=== PATIENT | male | born 1995 | race American Indian/Alaskan Native ===

== ENCOUNTER 2017-07-16 18:19 | Emergency (ER) | payer OTHER ==
[2017-07-16 18:40] VITALS: BP 131/73
[2017-07-16] MEDS ORDERED: BOOSTRIX IM ONE (19:19)
[2017-07-16] MEDS ORDERED: ULTRAM PO ONE (19:19)
[2017-07-16] MEDS ORDERED: MARCAINE 0.5% INFILTRATI ONE (19:25)
--- NOTE | 2017-07-16 19:26 | Emergency Department Report ---
ED Laceration HPI - HPI Chief Complaint: Laceration/Recheck/Suture Stated Complaint: EYE LAC Time Seen by Provider: 07/16/17 19:16 Occurred When: Today Location: Head Severity: mild Tetanus Status: Not up to Date Laceration Symptoms: Yes Pain, No Foreign Body Sensation, No Numbness, No Weakness Other History: This is a 22-year-old male nontoxic, well nourished in appearance , no acute signs of distress presents to the ED with c/o of left eyebrow lacertation. Patient stated he was playing basketball in correction and was elbowed. Patient denies any loss of consciousness but stated he had a severe headache. Patient denies any blurry vision, visual changes, fever, chills, nausea, vomiting, chest pain shortness of breath. Patient denies significant past medical history ED Review of Systems ROS: Stated complaint: EYE LAC Other details as noted in HPI Constitutional: denies: chills, fever Eyes: denies: eye pain, eye discharge, vision change ENT: denies: ear pain, throat pain Respiratory: denies: cough, shortness of breath, wheezing Cardiovascular: denies: chest pain, palpitations Endocrine: no symptoms reported Gastrointestinal: denies: abdominal pain, nausea, diarrhea Genitourinary: denies: urgency, dysuria Musculoskeletal: denies: back pain, joint swelling, arthralgia Skin: denies: rash, lesions Neurological: denies: headache, weakness, paresthesias Psychiatric: denies: anxiety, depression Hematological/Lymphatic: denies: easy bleeding, easy bruising ED Past Medical Hx - Past Medical History Previous Medical History?: No - Surgical History Past Surgical History?: Yes Additional Surgical History: ankle - Social History Smoking Status: Never Smoker Substance Use Type: None - Medications Home Medications: Home Medications Medication Instructions Recorded Confirmed Last Taken Type Ibuprofen [Motrin] 600 mg PO Q8H PRN #30 tablet 07/16/17 Unknown Rx Sulfamethoxazole/Trimethoprim 1 each PO BID #14 tablet 07/16/17 Unknown Rx [Bactrim DS TAB] Laceration Physical Exam - Exam General: Vital signs noted. No distress. Alert and acting appropriately. GENERAL: The patient is a well-developed, well-nourished in no apparent distress. Patient is alert and acting appropriately for age. Alert and oriented 3, no apparent distress, normal gait, atraumatic. HEENT: Head is normocephalic and atraumatic. PERRL, Extraocular muscles are intact. Pupils are equal, round, and reactive to light and accommodation. Nares appeared normal. Mouth is well hydrated and without lesions. Mucous membranes are moist. Posterior pharynx clear of any exudate or lesions. Mouth is well hydrated and without lesions. Tonsils not erythematous or swollen. Uvula midline. Tongue elevated. Mucous members are moist. Posterior pharynx clear, no exudate or lesions. Patent airways. NECK: Supple. No carotid bruits. No lymphadenopathy or thyromegaly.nontender. No meningitic signs are noted. LUNGS: Clear to auscultation. Non labor breathing. No intercostal retractions. Symmetrical with respiration, no wheezing, no rales, or crackles. HEART: Regular rate and rhythm without murmur, rubs or gallops. No reproducible. S1, S2 present, regular rate and rhythm without murmur, no rubs, no gallops. ABDOMEN: Soft, nontender, and nondistended. Positive bowel sounds. No hepatosplenomegaly was noted. No guarding or rebound tenderness, negative epigastric bruit. Negative psoas sign, negative cage sign, negative McBurneys sign EXTREMITIES: Without any cyanosis, clubbing, rash, lesions or edema. Peripheral pulses intact. Capillary refill less than 2 seconds. Full range of motion bilaterally. NEUROLOGIC: Cranial nerves II through XII are grossly intact. Alert and oriented x 3. Normal gait. Symmetrical strength and sensation. Reflexes 2+ throughout. Cerebellar testing normal. GCS score of 15. PSYCHIATRIC: Normal affect with no suicidal or homicidal ideations. Skin: 2 cm superficial linear laceration to left eyebrow. Wound Length (cm): 2 Laceration Location: Head Full Body Front + Back: 1 - lac Laceration Exam: Yes Normal Distal CMS, No Foreign Body, No Exposed Tendon, Vessel, or Nerve, No Tendon Injury ED Course Vital Signs 07/16/17 18:35 Temperature 98.2 F Pulse Rate 65 Respiratory 16 Rate Blood Pressure 131/73 O2 Sat by Pulse 96 Oximetry - Reevaluation(s) Reevaluation #1: 07/16/17 19:26 Patient is speaking in full sentences with no signs of distress noted. - Laceration /Wound Repair Left Eye Wound Location: face (left eyebrow) Wound's Depth, Shape: superficial, linear Wound Explored: clean Irrigated w/ Saline (ccs): 40 Betadine Prep?: Yes Anesthesia: 0.5% Sensorcaine Volume Anesthetic (ccs): 3 Wound Repaired With: sutures Suture Size/Type: 5:0, proline Number of Sutures: 3 Layer Closure?: No Sterile Dressing Applied?: Yes Progress: Under sterile field, I used Betadine to clean the area. I then used 40 mL of normal saline to flush the area. I then used 0.5% Marcaine plain and injected 3 mL to the wound. I then used a 5-0 Prolene to suture the laceration. Number of stitches 3. I then applied a sterile 4 x 4 with tape. Minimal bleeding noted but is under control. Patient tolerated procedure well with no signs of distress. ED Medical Decision Making - Medical Decision Making This is a 22-year-old male that presents with lac. Patient is stable and was examined by me. CT of head/brain obtained and dictated by radiologist within normal limits. Patient is notified of CT results with no questions noted. Patient received Ultram and tenderness in the ED. Laceration has repaired successfully with no signs of any distress. Patient was instructed to proper wound care. Patient was instructed to return and 7 days for suture removal. Patient is with correction guards and is taken by them. Patient is discharged with Bactrim. At time of discharge, the patient does not seem toxic or ill in appearance. No acute signs of distress noted. Patient agrees to discharge treatment plan of care. No further questions noted by the patient. Critical care attestation.: If time is entered above; I have spent that time in minutes in the direct care of this critically ill patient, excluding procedure time. ED Disposition Clinical Impression: Laceration Disposition: DC-01 TO HOME OR SELFCARE Is pt being admited?: No Does the pt Need Aspirin: No Condition: Stable Instructions: Sulfamethoxazole/Trimethoprim (By mouth), Suture Care (ED), Laceration (ED) Additional Instructions: Return in 7 days for suture removal. Prescriptions: Ibuprofen [Motrin] 600 mg PO Q8H PRN #30 tablet PRN Reason: Pain Sulfamethoxazole/Trimethoprim [Bactrim DS TAB] 1 each PO BID #14 tablet Referrals: KALINA TIM MD [Staff Physician] - 3-5 Days [facility] [Outside] - 3-5 Days
--- NOTE | 2017-07-16 21:19 | Cat Scan Report ---
FINAL REPORT PROCEDURE: CT HEAD/BRAIN WO CON TECHNIQUE: Computerized tomography of the head was performed without contrast material. HISTORY: headache s/p trauma COMPARISON: No prior studies are available for comparison. FINDINGS: Skull and scalp: Normal. Paranasal sinuses: Normal. Ventricles and subarachnoid spaces: Normal. Cerebrum: No evidence of hemorrhage, acute infarction or mass . Cerebellum and brainstem: No evidence of hemorrhage, acute infarction or mass. Vasculature: Normal. Comments: None. IMPRESSION: Normal Examination
== END 2017-07-16 21:29 | disposition home or self-care (01) ==
LOC: ED 18:19
DX: S01.112A Laceration without foreign body of left eyelid and periocular area, initial encounter (principal); Z88.6 Allergy status to analgesic agent; W51.XXXA Accidental striking against or bumped into by another person, initial encounter; Y93.67 Activity, basketball; Y99.8 Other external cause status; Y92.149 Unspecified place in prison as the place of occurrence of the external cause
CPT/HCPCS: 70450; 90471; 90715